=== PATIENT | female | born 1965 | race Caucasian/White ===

== ENCOUNTER 2025-04-25 06:57 | Emergency (ER) | payer BC ==
[~2025-04-25] VITALS: Ht 165.1 cm; Wt 46.9 kg
[2025-04-25 06:57] VITALS: TEMP 97.6
--- NOTE | 2025-04-25 07:13 | Physician Documentation ---
History of Present Illness ~ Chief Complaint: Mental Health Eval Stated Complaint: ANXIETY A ALS Time Seen by MD: 07:12 HPI 59-year-old female, who presents with a mental breakdown She tells me that her 2 years ago, suddenly. She recently moved her [place]. She tells me that she is having a mental breakdown. When I asked her more specific question she frequently just says it is just life. She tells me that last night and this morning she was having suicidal thoughts, and that is why she called 911. She currently is having thoughts of hurting herself, but without a specific plan. She denies any physical self-harm or ingestion as a suicide attempt. She has been drinking alcohol last night. She does not have a primary doctor or therapist or other resources. She denies any acute medical concerns or symptoms. History is otherwise somewhat limited due to her clinical condition Medication Reconciliation Allergies: Coded Allergies: Sulfa (Sulfonamide Antibiotics) (Verified Allergy, Unknown, 04/25/25) Scheduled Hydroxyzine Hcl* (Atarax*), 1 TAB PO Q8H Review of Systems Constitutional: Denies: fever Psychiatric: Reports: depression, anxiety, sleeplessness, suicidal Physical Exam Vital Signs: Temperature: 97.6, Source: Temporal, Heart Rate: 108, Respiratory Rate: 16, BP: 134/100, Pulse Oximetry: 95, Weight: 46.900 Physical Exam General: This is a tearful middle-aged woman HEENT: Atraumatic, oropharynx is moist Heart: Mild tachycardic, appears regular Lungs: Clear breath sounds bilateral, normal work of breathing, normal oxygen saturation on room air Extremities: Warm and well-perfused Neuro: Alert and oriented, no focal deficits Psychiatric: Tearful, appears anxious, possibly mildly intoxicated versus sleepy. Endorses thoughts of self-harm without a specific plan. Does not appear to be responding to internal stimuli. Progress Results/Orders Results/Orders Orders - OSCAR NICE MD Med Rec (04/25/25 07:34) 1799.11 (04/25/25 07:34) Close Observation Level (04/25/25 07:34) Substance Use Navigator (04/25/25 07:34) Completed Orders - OSCAR NICE MD Cbc/Diff (04/25/25 07:34) Drug Screen, Urine (04/25/25 07:34) Ethanol (04/25/25 07:34) TSH (04/25/25 07:34) BMP (04/25/25 07:34) Regular Diet (04/25/25 Lunch) Nicotine 14mg Patch-24hr (Habitrol Patch (04/25/25 12:20) Medications Received in ER Medications (Trade) Dose Ordered Sig/Yulissa Route PRN Reason Start Time Stop Time Status Last Admin Dose Admin (Habitrol patch) 1 patch ONCE ONCE TD 04/25/25 12:20 04/25/25 12:21 DC 04/25/25 12:26 1 PATCH Vital Signs 04/25/25 04/25/25 04/25/25 06:57 10:01 13:51 Temp 97.6 Pulse 108 53 Resp 16 15 15 B/P (MAP) 134/100 156/97 (116) Pulse Ox 95 99 Laboratory Tests Test 04/25/25 08:01 04/25/25 09:15 White Blood Count 7.3 Red Blood Count 4.25 Hemoglobin 14.1 Hematocrit 41.3 Mean Corpuscular Volume 97.1 Mean Corpuscular Hemoglobin 33.1 H Mean Corpuscular Hemoglobin Concent 34.1 Red Cell Distribution Width 14.1 Platelet Count 245 Mean Platelet Volume 7.7 Neutrophils (%) (Auto) 38.1 L Lymphocytes (%) (Auto) 50.9 Monocytes (%) (Auto) 7.1 Eosinophils (%) (Auto) 3.1 Basophils (%) (Auto) 0.8 Neutrophils # (Auto) 2.8 Lymphocytes # (Auto) 3.7 Monocytes # (Auto) 0.5 Eosinophils # (Auto) 0.2 Basophils # (Auto) 0.1 CBC Comment Sodium Level 138 Potassium Level 3.5 Chloride Level 100 Carbon Dioxide Level 24.7 Anion Gap 13 Blood Urea Nitrogen 3 L Creatinine 0.45 Estimated GFR/1.73 m2 > 90 BUN/Creatinine Ratio 6.7 L Glucose Level 90 Calcium Level 8.5 Albumin 3.6 Thyroid Stimulating Hormone (TSH) 2.40 Chemistry Comments Ethyl Alcohol Level 189 H Urine Opiates Screen Negative Urine Methadone Screen Negative Urine Fentanyl Screen Negative Urine Barbiturates Screen Negative Urine Phencyclidine Screen Negative Urine Amphetamines Screen Negative Urine Benzodiazepines Screen Negative Urine Cocaine Screen Negative Urine Cannabinoids Screen Positive Drug Screen Comment Re-Evaluation Re-Evaluation : Re-Evaluation Time: 09:29 Progress The patient is medically cleared for mental health evaluation Consults/PCP Consults/PCP : Additional Comment Consult: Mental health team consulted. They evaluated the patient and feel that she is safe for discharge with outpatient resources and recommend hydroxyzine. Medical Decision Making Differential Dx:Considerations: Include: Alcohol abuse, Anxiety, Depression, Substance abuse, Suicidal Differential Diagnosis The patient presents with symptoms consistent with anxiety and depression in the setting of grief, as well as some suicidal thoughts without specific plan or attempt. She does appear quite anxious and depressed. Mental screening labs are unremarkable and she is medically cleared for mental health evaluation. Mental health team did evaluate her and felt she was safe for discharge home with outpatient resources. She will be prescribed hydroxyzine for anxiety. Return precautions given. Departure Time of Disposition: 17:20 Disposition: 01 HOME / SELF CARE / HOMELESS Impression: Primary Impression: Anxiety Additional Impression: Depression Condition: Improved Discharge Instructions: Depression, Adult, Suicidal Feelings: How to Help Yourself Additional Instructions: Transfer orders for [facility]: At this time there is no evidence of an emergent medical condition that would preclude (admission/transfer) to a psychiatric unit via [facility] protocol for further psychiatric, as well as medical evaluation and treatment. At this time I have no reason to believe that transfer via [facility] protocol would have serious medical compromise in the patient's health. Referrals: NO PRIMARY CARE PROVIDER (PCP) Prescriptions Hydroxyzine Hcl* (Atarax*) 25 Mg Tablet 1 TAB PO Q8H for anxiety for 30 Days, #90 TAB Prov: OSCAR NICE MD 04/25/25 Education Educated: Patient Educated regarding: diagnosis, treatment, need for follow up Signature Scribe Signature: torsten Attestation: OSCAR Joseph MD Apr 25, 2025 07:12
[2025-04-25 08:21] LABS: MEAN PLATELET VOLUME 7.7 FL (7.4-10.4); RED CELL DISTRIBUTION WIDTH 14.1 % (11.5-14.5)
[2025-04-25 08:49] LABS: CREATININE 0.45 MG/DL (0.40-0.90); ETHANOL 189 MG/DL (<10); TOTAL CARBON DIOXIDE 24.7 MMOL/L (24-32); eCRCL 101 ML/MIN; eGFR > 90 ML/MIN
[2025-04-25 09:52] LABS: URINE AMPHETAMINE SCREEN NEGATIVE (Neg); URINE BARBITUATE SCREEN NEGATIVE (Neg); URINE BENZODIAZEPINES SCREEN NEGATIVE (Neg); URINE CANNABINOID SCREEN POSITIVE (Neg); URINE COCAINE SCREEN NEGATIVE (Neg); URINE METHADONE SCREEN NEGATIVE (Neg); URINE OPIATE SCREEN NEGATIVE (Neg); URINE PHENCYCLIDINE SCREEN NEGATIVE (Neg)
[2025-04-25 10:01] VITALS: BP 156/97; PULSE 53; O2SAT 99
[2025-04-25] MEDS: nicotine 14mg patch - 24hr TD ONE (12:26)
[2025-04-25 13:51] VITALS: RESP 15
[2025-04-25] MEDS ORDERED: HYDR-3686 PO (17:21)
== END 2025-04-25 17:50 | disposition home or self-care (01) ==
LOC: ER 06:58
DX: F41.9 Anxiety disorder, unspecified (principal); F32.A Depression, unspecified; Z88.2 Allergy status to sulfonamides; Z79.899 Other long term (current) drug therapy
CPT/HCPCS: 36415; 80048; 80305; 80320; 84443; 85025; 99283